=== PATIENT | female | born 1965 | race Hispanic/Latino ===

== ENCOUNTER 2024-05-28 12:40 | Emergency (ER) | payer OTHER ==
[~2024-05-28] VITALS: Ht 160 cm; Wt 73.0 kg
[2024-05-28 13:22] VITALS: PULSE 53; RESP 18; TEMP 97.1
[2024-05-28 15:08] VITALS: BP 140/82; PULSE 70; RESP 16; TEMP 98.4; O2SAT 99
== END 2024-05-28 15:12 | disposition home or self-care (01) ==
LOC: ER 13:05
DX: R51.9 Headache, unspecified (principal); R07.9 Chest pain, unspecified; M54.50 Low back pain, unspecified; W01.0XXA Fall on same level from slipping, tripping and stumbling without subsequent striking against object, initial encounter; Y93.K1 Activity, walking an animal
CPT/HCPCS: 70450; 71046; 72100; 99284